=== PATIENT | female | born 1995 | race Caucasian/White ===

== ENCOUNTER 2024-07-23 11:06 | Outpatient (CLI) | payer OTHER, SELFPAY ==
[2024-07-23 18:43] LABS: Basophils % 0.8 % (0.1-2.0); Eosinophils # 0.2 K/mm3 (0.0-0.4); Eosinophils % 4.4 % (0.1-12.0); Hematocrit 40.9 % (37.0-47.0); Lymphocytes # 2.2 K/mm3 (0.7-4.5); Lymphocytes % 42.9 % (10-50); Mean Corpuscular HGB Conc 34.2 g/dL (31.8-35.4); Mean Corpuscular Hemoglobin 29.9 pg (27.0-31.2); Mean Corpuscular Volume 87.5 fl (81-99); Mean Platelet Volume 9.1 fl (7.4-10.4); Monocytes # 0.3 K/mm3 (0.1-1.0); Monocytes % 5.3 % (1.7-9.3); Neutrophils # 2.4 K/mm3 (1.8-7.8); Neutrophils % 46.5 % (37.0-80.0); Platelet Count 247 K/mm3 (142-424); Red Blood Count 4.67 M/mm3 (4.20-5.40); Red Cell Distribution Width 13.1 % (11.5-17.5); White Blood Count 5.1 K/mm3 (4.8-10.8)
[2024-07-23 18:53] LABS: Albumin Level 4.6 g/dl (3.5-5.0); Chloride 104 mmol/L (98-107); Potassium 4.5 mmoL/L (3.5-5.1); Sodium 138 mmol/L (136-145)
[2024-07-23 18:56] LABS: Alanine Aminotransferase 26 U/L (12-78); Albumin/Globulin Ratio 1.7 (1.1-1.8); Alkaline Phosphatase 54 U/L (38-126); Aspartate Amino Transferase 29 U/L (14-36); Bilirubin,Total 0.5 mg/dl (0.2-1.3); Blood Urea Nitrogen 8 mg/dl (7-17); Calcium 9.6 mg/dl (8.4-10.2); Carbon Dioxide 25 mmol/L (22.0-30.0); Estimated Glomerular Filt Rate 100 ml/min (>60); GFR (African American) 121 ML/MIN (>60); Globulin 2.7 g/dL (1.3-3.2); Glucose 65 mg/dl (74-100); Total Protein,Serum 7.3 g/dl (6.3-8.2)
[2024-07-23 19:03] LABS: C-Reactive Protein 3.2 mg/L (0-4)
[2024-07-23 19:31] LABS: Erythrocyte Sedimentation Rate 12 mm/hr (0-20); Thyroid Stimulating Hormone 2.38 uIU/mL (0.465-4.68)
[2024-07-23 19:38] LABS: Uric Acid 4.9 mg/dl (2.5-6.2)
[2024-07-23 20:50] LABS: Anion Gap 13.5 mEq/L (5-15)
[2024-07-25 11:17] LABS: RA Latex Turbid. <10.0 IU/mL (<14.0)
[2024-07-25 12:47] LABS: Anti-Centromere B Antibodies <0.2 AI (0.0-0.9); Anti-DNA (DS) Ab Qn <1 IU/mL (0-9); Anti-Jo-1 <0.2 AI (0.0-0.9); Anti-Smith Antibody <0.2 AI (0.0-0.9); Antichromatin Antibodies <0.2 AI (0.0-0.9); Antiscleroderma-70 Antibodies <0.2 AI (0.0-0.9); RNP Antibodies 0.2 AI (0.0-0.9); Sjogren's Anti-SS-A <0.2 AI (0.0-0.9); Sjogren's Anti-SS-B <0.2 AI (0.0-0.9)
[2024-07-25 15:33] LABS: Lyme Ab CIA Negative (Negative)
[2024-07-26 14:14] LABS: Antinuclear Antibodies, IFA Negative (.)
== END 2024-07-23 23:59 | disposition home or self-care (01) ==
LOC: LAB.DROPOF 07-24 11:06
PROVIDERS: PCP Nurse Practitioner; Visit Provider Nurse Practitioner
DX: L03.113 Cellulitis of right upper limb (principal); M79.89 Other specified soft tissue disorders
CPT/HCPCS: 80050; 80053; 84443; 84550; 85025; 85651; 86038; 86140; 86225; 86235; 86431

== ENCOUNTER 2024-08-23 18:39 | Outpatient (CLI) | payer OTHER, MEDICAID, SELFPAY ==
[2024-08-23 19:05] LABS: D-Dimer < 0.25 ug/mL (0.0-0.5)
== END 2024-08-23 23:59 | disposition home or self-care (01) ==
LOC: LAB 18:40
PROVIDERS: PCP Nurse Practitioner Family; Visit Provider Nurse Practitioner Family
DX: M79.89 Other specified soft tissue disorders (principal)
CPT/HCPCS: 85378

== ENCOUNTER 2024-09-23 15:24 | Outpatient (CLI) | payer OTHER, MEDICAID, SELFPAY ==
--- NOTE | 2024-09-23 15:27 | XR_ITS ---
FINAL REPORT CLINICAL HISTORY: swelling of right hand COMPARISON: None FINDINGS: No acute pulmonary density is evident. There is no evidence of effusion or other pleural disease. The mediastinum has a normal appearance. The cardiac silhouette is unremarkable. IMPRESSION: Unremarkable chest exam. Reviewed, Interpreted and Dictated by Gricelda Bond MD Transcribed by Wendy Dia Authenticated and [facility]
--- NOTE | 2024-09-23 15:27 | XR_ITS ---
FINAL REPORT CLINICAL HISTORY: back pain COMPARISON: None FINDINGS: 3 views lumbosacral spine were obtained. No fracture is identified. Disc spaces are well-preserved. Alignment is normal. IMPRESSION: Unremarkable lumbar spine series. Reviewed, Interpreted and Dictated by Gricelda Bond MD Transcribed by Wendy Dia Authenticated and [facility]
--- NOTE | 2024-09-23 15:27 | XR_ITS ---
FINAL REPORT CLINICAL HISTORY: swelling of right hand COMPARISON: None FINDINGS: Two views of the right wrist were obtained. There is no acute fracture or dislocation. The joint spaces are well preserved. There is no acute soft tissue abnormality. IMPRESSION: No acute abnormality identified. Reviewed, Interpreted and Dictated by Gricelda Bond MD Transcribed by Wendy Dia Authenticated and [facility]
== END 2024-09-23 23:59 | disposition home or self-care (01) ==
LOC: RAD 15:25
PROVIDERS: PCP Nurse Practitioner; Visit Provider Family Medicine
DX: M79.89 Other specified soft tissue disorders (principal); M54.9 Dorsalgia, unspecified
CPT/HCPCS: 71046; 72100; 73100

== ENCOUNTER 2024-11-12 11:00 | Outpatient (CLI) | payer OTHER, MEDICAID, SELFPAY | END 2024-11-12 23:59 | disposition home or self-care (01) | LOC: LAB.DROPOF 11-13 09:51 | PROVIDERS: PCP Nurse Practitioner; Visit Provider Nurse Practitioner | DX: R30.0 Dysuria (principal) | CPT/HCPCS: 87086 ==

== ENCOUNTER 2024-12-12 09:56 | Outpatient (RCR) | payer OTHER, SELFPAY ==
--- NOTE | 2024-12-12 17:42 | HMH.PTOPWND ---
Rehab Outpt Wound Evaluation Rehab OP Wound Evaluation Start: 12/12/24 17:25 Freq: Status: Active Protocol: Document 12/12/24 17:25 JESSENIA (Rec: 12/12/24 17:41 PHORZANE [id number]) E-signed By Nikhil Garsia, PT Subjective/History History History This is the initial PT eval for Brooke Eaton, 29 yowf who presents with c/o R hand edema increased x ~6-8 mos with insidious onset of symptoms. She reports previously having similar symptoms, but they would always go away after treatment with oral abx or steroids. She reports intermittent numbness tingling in the R forearm associated with increased edema. She reports tenderness to palpation in the R axilla intermittently as well. No significant PMH noted and all X-rays are clear thus far. Subjective Subjective Currently pain is 0/10, 2/4 TTP noted to R axilla and R hand at this time. Palpable fullness noted to R sub- axillary region and throughout R UE. She also reports, My low back feels swollen and sore sometimes, right in the center. New diagnosis of cancer in past 12 No months? Lymphedema Eval Stemmer's sign Stemmer's Sign yes Stage of Lymphedema Lymphedema stages Stage 0 (subjective c/o heaviness and aching) Skin Changes Dry Skin Yes Redness Yes: MILD blanchable erythema Discoloration of Skin Yes Other Changes Yes Affected Extremities Areas Affected by Lymphedema/Edema Right Upper Extremity,Right Breast,Right Axilla,Sub Axiallary Region Upper Extremity Measurements Right MCP Measurement (cm) 19.8 Web Space Measurement (cm) 20.8 Ulnar Styloid Process Measurement (cm) 16.3 10 cm Proximal to Ulnar Styloid 25.3 Measurement (cm) 20 cm Proximal to Ulnar Styloid 28.4 Measurement (cm) 30 cm Proximal to Ulnar Styloid 32.5 Measurement (cm) 40 cm Proximal to Ulnar Styloid 0 Measurement (cm) 50 cm Proximal to Ulnar Styloid 0 Measurement (cm) Upper Extremity Measurement Total (cm) 143.1 Left MCP Measurement (cm) 18.6 Web Space Measurement (cm) 20.0 Ulnar Styloid Process Measurement (cm) 15.6 10 cm Proximal to Ulnar Styloid 24.3 Measurement (cm) 20 cm Proximal to Ulnar Styloid 27.4 Measurement (cm) 30 cm Proximal to Ulnar Styloid 32.3 Measurement (cm) 40 cm Proximal to Ulnar Styloid 0 Measurement (cm) 50 cm Proximal to Ulnar Styloid 0 Measurement (cm) Upper Extremity Measurement Total (cm) 138.2 Manual Lymphatic Drainage Treatment Area MLD Treatment Area Right Upper Extremity,Right Breast,Right Axilla,Sub Axiallary Region Wound Problems/Impairments Impairments Problems/Impairmments Palpation Tenderness,Increased Edema,Lymphedema Present, Impaired Self Care/Self Management Prognosis Rehab Potential Good Comment Skilled therapy services are indicated to aid reduction of overall edema burden in order to return pt to PLOF. Unable to discern if this is a primary lymphedema or a secondary lymphedema of unknown type at this time. Clinical Impression Consistent with Diagnosis Yes Consistent with also Additional details: I89.0 Lymphedema Short Term Goals Number of Weeks 2 Decreased Palpation Tenderness Yes: 1/4 R axilla Patient to Understand Lymphedema Yes Treatment and Exercises Decrease Girth Measurments by (cm) Yes: R UE total by 3 cm Fdc Goals Number of Weeks 4 Decreased Palpation Tenderness Yes: 0/4 R axilla Decrease Lymphedema Yes: No palpable lymphedema to R UE Patient to be Ind w/ HEP Yes Patient to Adhere Lymphedema Precautions Yes Decrease Girth Measurments by (cm) Yes: R UE total by 5 cm Outpatient Therapy Plan of Care Treatment Plan May Include Therapeutic Exercise Including Home Yes Exercise Program Manual Therapy Techniques Yes Neuromuscular Re-education Yes Therapeutic Activities to Return to Yes Previous Functional/Work Level ADL/Self Care Education Yes Orthotics/Bracing/Splinting Yes Manual Lymphatic Drainage Yes Eval/Re-Eval Yes Frequency Times per week 1-2 Duration Number of Weeks 4 Addendums This patient is a candidate for social No or vocational rehab? Patient/Guardian verbally acknowledges Yes understanding of treatment program and consents to further treatment? Patient/Guardian verbally acknowledges Yes understanding of diagnosis, prognosis and goals for treatment? Eval Complexity PT Charges 99797 - High Complexity PHYSICIAN CERTIFICATION: I certify the specified therapy services for BROOKE EATON are required, authorized, and reviewed every 30 days.
== END 2024-12-12 23:59 | disposition home or self-care (01) ==
LOC: PT 09:56
PROVIDERS: Visit Provider Family Medicine
DX: M79.89 Other specified soft tissue disorders (principal)
CPT/HCPCS: 97140; 97163

== ENCOUNTER 2025-09-09 10:46 | Outpatient (CLI) | payer OTHER, SELFPAY ==
[2025-09-09 20:02] LABS: Coronavirus 19, PCR Not Detected (NotDetected); Influenza A, PCR Not Detected (NotDetected); Influenza B, PCR Not Detected (NotDetected)
[2025-09-09 20:53] LABS: Hematocrit 39.2 % (37.0-47.0); Hemoglobin 13.0 g/dL (12.2-16.2); Immature Granulocytes % 0.3 %; Mean Corpuscular HGB Conc 33.2 g/dL (31.8-35.4); Mean Corpuscular Hemoglobin 29.7 pg (27.0-31.2); Mean Corpuscular Volume 89.7 fl (81-99); Nucleated Red Blood Cells % 0 %; Platelet Count 256 K/mm3 (142-424); Red Blood Count 4.37 M/mm3 (4.20-5.40); Red Cell Distribution Width-SD 41.6 fL; White Blood Count 6.1 K/mm3 (4.8-10.8)
[2025-09-09 21:12] LABS: D-Dimer 0.42 ug/mL (0.0-0.5)
[2025-09-09 21:27] LABS: Alanine Aminotransferase 20 U/L (12-78); Albumin Level 4.5 g/dl (3.5-5.0); Albumin/Globulin Ratio 1.5 (1.1-1.8); Alkaline Phosphatase 66 U/L (38-126); Anion Gap 15.1 mEq/L (5-15); Aspartate Amino Transferase 21 U/L (14-36); Bilirubin,Total 0.4 mg/dl (0.2-1.3); Blood Urea Nitrogen 11 mg/dl (7-17); Calcium 9.8 mg/dl (8.4-10.2); Carbon Dioxide 26 mmol/L (22.0-30.0); Chloride 101 mmol/L (98-107); Creatinine,Serum 0.80 mg/dl (0.52-1.04); Estimated Glomerular Filt Rate 85 ml/min (>60); GFR (African American) 103 ML/MIN (>60); Globulin 3.0 g/dL (1.3-3.2); Glucose 87 mg/dl (74-100); Magnesium 1.8 mg/dl (1.6-2.3); Phosphorous 5.1 mg/dl (2.5-4.5); Potassium 4.1 mmoL/L (3.5-5.1); Sodium 138 mmol/L (136-145); Total Protein,Serum 7.5 g/dl (6.3-8.2)
[2025-09-09 22:12] LABS: Thyroid Stimulating Hormone 1.71 uIU/mL (0.465-4.68)
== END 2025-09-09 23:59 ==
LOC: LAB.DROPOF 09-11 10:47
PROVIDERS: PCP Nurse Practitioner; Visit Provider Nurse Practitioner
DX: J06.9 Acute upper respiratory infection, unspecified (principal); R00.0 Tachycardia, unspecified; R06.02 Shortness of breath
CPT/HCPCS: 80053; 83735; 84100; 84443; 85025; 85378; 87636

== ENCOUNTER 2025-09-10 15:59 | Outpatient (CLI) | payer OTHER, SELFPAY ==
--- NOTE | 2025-09-10 16:26 | XR_ITS ---
PROCEDURE INFORMATION: Exam: XR Chest Exam date and time: 09/10/2025 4:30 PM Age: 30 years old Clinical indication: Cardiovascular condition or disease; Other: Tachycardia; Shortness of breath; Additional info: Tachycardia, SOB TECHNIQUE: Imaging protocol: Radiologic exam of the chest. Views: 2 views. COMPARISON: CR XR CHEST 2V 09/23/2024 3:30 PM FINDINGS: Lungs: Unremarkable. No consolidation. Pleural spaces: Unremarkable. No pleural effusion. No pneumothorax. Heart/Mediastinum: Unremarkable. No cardiomegaly. Bones/joints: Unremarkable. IMPRESSION: No acute findings.
[2025-09-10 17:32] LABS: 25-OH Vitamin D, Total 25.9 ng/mL (30-100)
[2025-09-12 16:40] LABS: Calcium, Ionized 5.2 mg/dL (4.5-5.6)
== END 2025-09-10 23:59 | disposition home or self-care (01) ==
LOC: LAB 15:59
PROVIDERS: PCP Nurse Practitioner; Visit Provider Nurse Practitioner
DX: E83.39 Other disorders of phosphorus metabolism (principal); R00.0 Tachycardia, unspecified; R06.02 Shortness of breath
CPT/HCPCS: 36415; 71046; 82306; 82330; 83970; 93225; 93227

== ENCOUNTER 2025-09-22 09:30 | Outpatient (CLI) | payer OTHER, SELFPAY ==
--- OUTSIDE RECORDS SUMMARY | 2021-09-01 09:00 | XMS_ITS | Encounter Summary ---
Author Organization [place] [address] Care Team Providers Care Applications Development Consultant Name Role Phone Lyndon Pisano MD Unavailable Sandra Hendricks MD Primary Care Provi cordelia Unavailable Encounter Details Date Type Department Care Team (Latest Contact Info) Description 09/01/2021 9:00 AM EST Hospital Encounter [facility] [place] [address] Obesity affecting in third trimester; COVID-19 affecting , antepartum; Pyelectasis of fetus on ultrasound Social History Tobacco Use Types Packs/Day Years Used Date Smoking Tobacco: Former Cigarettes 0.3 15.4 S tarted: 05/06/2010 Smokeless Tobacco: Never Tobacco Cessation:Ready to Q uit: Yes; Counseling Given: Yes Comments:5 a day Alcohol Use Standard Drinks/Week Comments Not Currently 0 (1 standard drink = 0.6 oz pur e alcohol) AUDIT-C Answer Date Recorded Q1: How often do you have a drink containing alc ohol? Monthly or less 04/28/2021 Average Number of Drinks Not on file 021 Frequency of Binge Drinking Not on file 04/02 Overall Financial Resource Strain (CARDIA) Answe r Date Recorded How hard is it for you to pa y for the very basics like food, housing, medical care, and heating? Not very hard 11/23/2023 PHQ-2 Answer Date Recorded PHQ-2 Total Score 0 09/19/2021 [facility] - Occupational Stress Questionnaire Answer Date Recorded Do you feel stress - tense, restless, nervous, or anxious, or unable to sleep at night because your mind is troubled all the time - these days? Only a little 11/23/2023 Exercise Vital Sign Answer Date Recorde d On average, how many days pe r week do you engage in moderate to strenuous exercise (like a brisk walk)? 1 day 11/23/2023 On average, how many minutes do you engage in exercise at this level? 20 min 11/23/2023 Hunger Vital Sign Answer Date Recorded Within the past 12 months, y ou worried that your food would run out before you got the money to buy more. Never true 11/23/19 24 Within the past 12 months, t he food you bought just didn't last and you didn't have money to get more. Never true 11/23/2023 PRAPARE - Transportation Answer Date Re corded In the past 12 months, has l ack of transportation kept you from medical appointments or from getting medications? No 11/03 In the past 12 months, has l ack of transportation kept you from meetings, work, or from getting things needed for daily living? No 11/23/2023 Housing Stability Vital Sign Answer Gasper e Recorded In the last 12 months, was t here a time when you were not able to pay the mortgage or rent on time? No 11/23/2023 In the last 12 months, how many places have you lived? 1 11/23/2023 In the last 12 months, was t here a time when you did not have a steady place to sleep or slept in a custodial (including now)? No 11/23/2023 Sexually Active Control Partners Comments Yes Male Comments No Sex and Gender Information Value Date Recorded Sex Assigned at Not on file Legal Sex Female 6:14 AM EDT Gender Identity Not on file Sexual Orientation Not on file COVID-19 Exposure Response Date Recorded In the last 10 days, have yo u been in contact with someone who was confirmed or suspected to have Coronavirus/COVID-19? No / Unsure 05/14/2023 10:53 PM EDT documented as of this encounter Functional Status * Is the person deaf or does he/she have serious difficulty hearing? Answer Date of Assessment Author No 06/17/2021 9:03 AM Alana Mosquera RN * Is the person blind or does he/she have serious difficulty seeing even when wearing glasses? Answer Date of Assessment Author No 06/17/2021 9:03 AM Alana Mosquera RN * Does this person have serious difficulty walking or climbing stairs? Answer Date of Assessment Author No 06/17/2021 9:03 AM Alana Mosquera RN * Does this person have difficulty dressing or bathing? Answer Date of Assessment Author No 06/17/2021 9:03 AM Alana Mosquera RN * Because of a physical, mental or emotional condition, does this person have difficulty doing errands alone such as visiting a doctor's office or shopping? Answer Date of Assessment Author No 06/17/2021 9:03 AM Alana Mosquera RN * PHQ-9 Total Score Answer Date of Assessment Author 0 09/19/2021 8:00 PM Fior Alvarez RN * Question Answer Date of Assessment Author Little interest or pleasure in doing things 0 09/19/2021 8:00 PM Fior Alvarez RN Feeling down, depressed, or hopeless 0 09/19/2021 8:00 PM Fior Alvarez RN PHQ-2 Total Score 0 09/19/2021 8:00 PM Fior Alvarez RN documented as of this encounter Mental Status * Because of a physical, mental or emotional condition, does this person have serious difficulty concentrating, remembering or making decisions? Answer Entry Date Author No 06/17/2021 9:03 AM Alana Mosquera RN documented in this encounter Plan of Treatment Not on file documented as of this encounter Goals Goal Patient Goal Type Associated Problems Recent Progress Patient-Stated? 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
[2025-09-22 16:20] LABS: Influenza A, PCR Not Detected (NotDetected); Influenza B, PCR Not Detected (NotDetected)
[2025-09-22 16:45] LABS: Hematocrit 38.6 % (37.0-47.0); Hemoglobin 12.1 g/dL (12.2-16.2); Immature Granulocytes % 0.2 %; Mean Corpuscular HGB Conc 31.3 g/dL (31.8-35.4); Mean Corpuscular Hemoglobin 28.5 pg (27.0-31.2); Mean Corpuscular Volume 90.8 fl (81-99); Nucleated Red Blood Cells % 0 %; Platelet Count 217 K/mm3 (142-424); Red Blood Count 4.25 M/mm3 (4.20-5.40); Red Cell Distribution Width-SD 42.4 fL; White Blood Count 5.2 K/mm3 (4.8-10.8)
[2025-09-23 02:06] LABS: Coronavirus 19, PCR Detected (NotDetected)
--- OUTSIDE RECORDS SUMMARY | 2025-09-23 11:49 | XMS_ITS | Clinical Summary ---
Author Organization 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 30 Tablet 2 3 Active nystatin (MYCOSTATIN) Top Cream 4 Active clindamycin (CLEOCIN) 2 % Vagl CreamIndications: Vaginal burning,Vagina itching,Vaginal discharge Place 1 Applicator vaginally daily. 5 g 4 Active fluconazole (DIFLUCAN) 150 mg Oral TabletIndications :Vaginal burning,Vagina itching,Vaginal discharge Take first dose today and repeat dose in 48 hrs 2 Tablet 4 Active Active Problems Problem Noted Date Diagnosed Date Carpal tunnel syndrome of left wrist 02/15/2021 Chronic allergic rhinitis 12/29/2016 Tobacco use Resolved Problems Problem Noted Date Diagnosed Date Resolved Date (spontaneous vaginal delivery) 09/21/2021 09/21/2021 Overview (09/21/2021): Male Ciara LRD Epi, intact, circ Normal labor and delivery 09/19/2021 Amniotic cavity/membrane pro blem suspected but not found 08/28/2021 01/07/2024 35 weeks gestation of 08/28/2021 01/07/2024 NST (non-stress test) reactive 08/28/2021 01/07/2024 Obesity complicating 07/21/2021 09/21/2021 Overview (07/21/2021): growth @ 34/38(ordered) COVID-19 affecting , antepartum 06/24/2021 09/21/2021 Overview (08/03/2021): Diagnosed 06/24/21 Baby ASA and growth scheduled 32 wk growth 43% (4#4), AC 37%, SRINI 16.6 Pyelectasis of fetus on ultrasound 05/31/2021 09/21/2021 Overview (08/03/2021): Bilateral, repeat US @ 32 wks Resolved @ 32 wks Supervision of other normal , antepartum 04/02/2021 01/07/2024 Overview (09/03/2021): CNM pt GS:declined ROEL by 14 wk US PNL's nml GBS: neg Left hand pain 02/15/2021 01/07/2024 Left wrist sprain, initial encounter 02/15/2021 01/07/2024 of unknown anatomic location 12/13/2020 04/02/2021 Incomplete 12/13/2020 04/02/20 21 Low T4 01/25/2018 01/07/2024 Overview (01/25/2018): Recheck labs. Check add't TPO d/t fatige/weight management issues. Obesity, Class I, BMI 30-34.9 11/12/2015 04/28/2021 Overview (04/02/2021): Wt Readings from Last 3 Encounters: 08/16/18 168 lb (76.2 kg) 06/22/18 166 lb 6.4 oz (75.5 kg) 06/13/18 163 lb (73.9 kg) Has been doing well with weight loss. Working on diet and exercise. Will continue phentermine 37.5mg po daily. Jai as expected, reference no. 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 CSF - increase wbc and protein - seems viral - herpes and enterovirus PCR not sent and pt refused repeat LP for diagnosis Cultures - neg to date Per ID pt can go home on po abx and follow up ID as outpt Cephalalgia 05/30/2015 09/09/2015 Tobacco abuse 05/30/2015 01/07/2024 Overview (04/02/2021): Currently working on cessation in Active labor at term 03/13/2014 015 (normal spontaneous vaginal delivery) 03/13/2014 12/18/2014 Abnormal O'Joyce glucose challenge test, antepartum 12/27/2013 12/18/2014 Overview (12/27/2013): GCT:151 GTT:NML Supervision of normal first teen 09/30/2013 12/18/2014 Overview (01/28/2014): CNM PT It's a BOY!! nimo 20wk gaviota:Presentation: Cephalic Umbilical Cord: 3 Vessel Cord. Normal insertion into the placenta. Placenta: Posterior, Fundal. There Is No Evidence Of Placenta Previa. URI, acute 10/12/2012 10/25/2013 Acute sinusitis 10/12/2012 10/25/2013 Need for HPV vaccination 10/12/2012 UTI (lower urinary tract infection) 06/26/2012 10/25/2013 COVID-19 affecting in third trimester 01/07/2024 complicated by tob acco use in third trimester 01/07/2024 Immunizations Immunization Administration Dates Next Due DTaP 10/19/2000, 9,05/01/1997,1996,1996 HPV Quadrivalent 10/12/2012,06/26/2012, 2 Hepatitis B, Unspecified Formulation 1996, 1996,1996 HiB, Unspecified Formulation 05/29/2001, 05/01/1997,1996,1996 IPV 10/19/2000, 9,1996,1996 Influenza, Split (Incl. Breanna fied Surface Antigen) 08/23/2020,07/26/2019 MMR 10/19/2000,09/05/1997 Tdap 09/16/2021,02/17/2014,06/15/2007 Varicella 09/05/1997 Surgical History Surgery Date Site/Laterality Comments TONSILLECTOMY 11/02/06 ADENOIDECTOMY DILATION AND CURETTAGE OF UTERUS 12/13/2020 N/A dilation and curettage; Surgeon: Yashira Gamez DO; Location: [facility]; Service: Obstetrics Medical History Medical History Date Comments Chicken pox 07/23/2009 Left wrist sprain, initial encounter 02/15/2021 Anemia low iron with pr egnancy Low T4 01/25/2018 Recheck labs. Ch kalen add't TPO d/t fatige/weight management issues. Family History Medical History Relation Name Comments No Known Problems Brother Hypertension Father Cancer Maternal Grandfather tonsil/ throat Diabetes Maternal Grandfather High Cholesterol Maternal Grandfather Hypertension Maternal Grandfather Thyroid Disease Maternal Grandfather COPD Maternal Grandmother Arthritis Mother Aneurysm Paternal Grandmother stomach Hypotension Paternal Grandmother No Known Problems Sister No Known Problems Son Relation Name Status Comments Brother Alive Father Alive Maternal Grandfather Alive Maternal Grandmother Alive Mother Alive Paternal Grandfather Paternal Grandmother Sister Alive Son Social History Tobacco Use Types Packs/Day Years Used Date Smoking Tobacco: Former Cigarettes 0.3 15.4 S tarted: 05/06/2010 Smokeless Tobacco: Never Comments:5 a day Alcohol Use Standard Drinks/Week [...] Date Recorded PHQ-2 Total Score 0 09/19/2021 [facility] - Occupational Stress Questionnaire Answer Date Recorded [...] place to sleep or slept in a prison (including now)? No 11/23/2023 Sexually Active Control Partners Comments Yes Male Comments No Sex and Gender Information Value Date Recorded Sex Assigned at Not on file Legal Sex Female 6:14 AM EDT Gender Identity Not on file Sexual Orientation Not on file Obstetrics History Para Term AB IAB SAB Ectopic Multiple Livin g Live Births 3 2 2 0 1 0 1 0 0 2 2 Date Outcome GA Total Labor Labor/2nd/3rd Weight Sex Type Anes PTL Betsey A1 A5 Name Clin 2013 Term 38w 6d 6 lb 3 oz (2.807 kg) M Vag-S pont Epidur al N Livin g 8 9 SANGEETHA EATON BABY A Solo Nur MD Delivery Location:[facility] 2020 SAB 2020 Term 39w 2d 0h 09m 0h 09m 6 lb 8.8 oz (2.97 kg) M Vag-S pont Epidur al N Livin g 8 9 SANGEETHA EATON BABY Downto n, Rachelle Harrison, PRICILLA Complications:COVID-19 affec ting in third trimester Delivery Location:[facility] ([facility]) Last Filed Vital Signs Vital Sign Reading Time Taken Comments Blood Pressure 107/91 12/02/2024 12:01 AM EST Pulse 66 12/01/2024 10:31 PM EST Temperature 36.5 C (97.7 F) 12/01/2024 10:31 PM EST Respiratory Rate 16 12/01/2024 10:31 PM EST Oxygen Saturation 100% 12/02/2024 12:11 AM EST Inhaled Oxygen Concentration - - Weight 95.3 kg (210 lb) 12/01/2024 10:31 PM EST Height 154.9 cm (5' 1 ) 12/01/2024 10:31 PM EST Body Mass Index 39.68 12/01/2024 10:31 PM EST Plan of Treatment Health Maintenance Due Date Last Done Comments Annual Wellness Exam 11/12/2016 11/12/2015 Cervical Cancer Screening 04/02/2024 Pap Smear 04/02/2024 04/02/2021, 06/13/2018 COVID-19 Vaccine ( season) 2025 12/14/2021, 11/16/2021 Influenza Vaccine (#1) 2025 08/23/2020, 2018 DTaP/TDaP/Td (9 - Td or Tdap) 09/16/2031 09/16/2021, 02/17/2014, 06/15/2007, Additional history exists Chlamydia Screening Discontinued 05/15/2023, 09/01/2021, 04/02/2021, Additional history exists Hepatitis B Vaccine Completed 09/27/2024, 03/25/2024, 1996, Additional history exists Meningococcal B Vaccine Aged Out No l onger eligible based on patient's age to complete this topic Pneumococcal Vaccine 0-49 Aged Out No longer eligible based on patient's age to complete this topic Goals Goal Patient Goal Type Associated Problems Recent Progress Patient-Stated? Author Eat better, exercise, reach an ideal body weight General No Janine Saleem RMA Stay Tobacco Free Lifestyle No Janine Saleem RMA Procedures Procedure Name Priority Date/Time Associated Diagnosis Comments CHLAMYDIA/GC BY MARY STAT 05/15/2023 1 :47 AM EDT POLITICAL AIDE CYTOLOGY REQUEST (PAP ONLY) Routine 04/02/2021 9:05 AM EDT Encounter for supervision of other normal in second trimester from Last 3 Months or Most Recently Relevant to Health Maintenance Results * CHLAMYDIA/GC BY TMA (05/15/2023 1:47 AM EDT) Chlamydia trachomatis Not Detected Not Detected 05/15/2023 12:48 PM EDT [facility] Neisseria gonorrhoeae Not Detected Not Detected 05/15/2023 12:48 PM EDT [facility] Swab SPECIMEN FROM UTERINE CERVIX / Unknown 05/15/2023 1:47 AM EDT 05/15/2023 1:49 AM EDT Narrative [facility] - 05/15/2023 12:48 PM EDT Testing methodology is environmental management specialist mediated amplification (TMA) using the Aptima Combo 2 assay from [employer]. A negative result does not completely rule out a Chlamydia trachomatis or Neisseria gonorrhoeae infection due to potential inhibitors or levels present below the limit of detection by this assay. Results are dependent on proper collection and transport of specimen. This test is indicated for medical purposes only and should not be used for legal or forensic purposes. The performance characteristics of this assay were validated by the testing laboratory. This assay is FDA cleared to test the following specimens: clinician-collected endocervical, vaginal, male urethral swab specimens, rectal swabs, and throat/pharyngeal swabs; patient collected vaginal specimens within a clinic setting; Thin Prep Specimens in PreservCyt Solution; and first-stream, unpreserved male and female urine specimens. Detailed methodology is available upon request. Josh Craig MD MICROBIOLOGY - GENERAL ORDER WILI Final Result [facility] [address] [facility], [place] [address] * POLITICAL AIDE CYTOLOGY REQUEST (PAP ONLY) (04/02/2021 9:05 AM EDT) CASE REPORT Gynecologic Cytology Report Case: [id number] Authorizing Provider: Lupe Jon, Collected: 04/02/2021 0905 RESOURCE RECOVERY ENGINEER Ordering Location: [facility] Received: 04/02/2021 0905 First Screen: Chelo Shah CT Rescreen: Warren Hall CT Specimen: LIQUID-BASED PAP - CERVICAL/ENDOCERV ICAL, Cervix, Endocervical 04/07/2021 11:01 AM EDT [facility] PAP FINAL DIAGNOSIS Negative for intraepithelial lesion or malignancy 04/07/2021 11:01 AM EDT [facility] at 1101 EDT MICROSCOPIC DESCRIPTION Microscopic examination is performed and the findings corroborate the diagnosis 04/07/2021 11:01 AM EDT [facility] PAP SMEAR ADEQUACY Satisfactory for evaluation 04/07/2021 11:01 AM EDT [facility] PAP ORGANISMS NOTED Abundant bacteria present. 04/07/2021 11:01 AM EDT [facility] ENDOCERVICAL T-ZONE Transformation zone present 04/07/2021 11:01 AM EDT [facility] EMBEDDED IMAGES 11:01 AM EDT [facility] PAP DISCLAIMER The Pap Smear is a screening test that aids in the detection of cervical cancer and cancer precursors. Both false positive and false negative results can occur. The test should be used at regular intervals, and positive results should be confirmed before definitive therapy. Processed using the ThinPrep Tool Repairer Automated cytology screening device ([employer]). 04/07/2021 11:01 AM EDT [facility] Thin Prep ENDOCERVICAL STRUCTURE / Unknown 04/02/2021 9:05 AM EDT 04/02/2021 9:05 AM EDT us Lupe Jon RESOURCE RECOVERY ENGINEER CYTOLOGY ORDERABLES Fi nal Result [facility] [address] [place] [id number] from Last 3 Months or Most Recently Relevant to Health Maintenance Insurance [facility] CHOICE PLUS Advance Directives For more information, please contact: [phone] * Full Code (Latest Code Status on File) Date Activated Date Inactivated Comments 09/19/2021 7:59 PM 09/22/2021 9:12 PM * Full Code Date Activated Date Inactivated Comments 03/13/2014 6:36 AM 03/14/2014 11:25 PM Care Teams Steel Layout Worker Relationship Specialty Start Date End Date Emilie Vega DO [address] [place] [id number] PCP - General Family Medicine 11/23/23 Lyndon Pisano MD Consulting Physician Orthopaedic Surgery-Hand Surgery 07/01/13
== END 2025-09-22 23:59 | disposition home or self-care (01) ==
LOC: LAB.DROPOF 09-23 11:46
PROVIDERS: PCP Nurse Practitioner; Visit Provider Nurse Practitioner
DX: J06.9 Acute upper respiratory infection, unspecified (principal)
CPT/HCPCS: 85025; 87631